=== PATIENT | male | born 1985 | race Two or more races ===

== ENCOUNTER 2020-04-16 15:05 | Emergency (ER) | payer OTHER ==
[~2020-04-16] VITALS: Ht 177.8 cm; Wt 77.7 kg
[2020-04-16 15:17] VITALS: BP 130/76
[2020-04-16] MEDS ORDERED: CYCL-331 PO (15:32)
[2020-04-16] MEDS ORDERED: PRED50TA PO (15:32)
--- NOTE | 2020-04-16 15:33 | PHYS DOC ---
Past History Past Medical History: No Pertinent History Past Surgical History: No Surgical History Alcohol Use: None General Adult EDM: Chief Complaint: BACK PAIN OR INJURY HPI: HPI: 34-year-old male presents with right low back pain. 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 The pain intensified quickly and he had to stop running. He took some ibuprofen at home but it is still moderate in intensity. It is a dull ache. No history of chronic back problems. He denies numbness, tingling, altered sensation of the lower extremities. He denies any other injuries at this time. Review of Systems: Review of Systems: Constitutional: Denies fever or chills Eyes: Denies change in visual acuity HENT: Denies nasal congestion or sore throat Respiratory: Denies cough or shortness of breath Cardiovascular: Denies chest pain or edema GI: Denies abdominal pain, nausea, vomiting, bloody stools or diarrhea : Denies dysuria Musculoskeletal: Right-sided low back pain Integument: Denies rash Neurologic: Denies headache, focal weakness or sensory changes Endocrine: Denies polyuria or polydipsia Lymphatic: Denies swollen glands Psychiatric: Denies depression or anxiety Heart Score: Risk Factors: Risk Factors: DM, Current or recent (<one month) smoker, HTN, HLP, family history of CAD, obesity. Risk Scores: Score 0 - 3: 2.5% MACE over next 6 weeks - Discharge Home Score 4 - 6: 20.3% MACE over next 6 weeks - Admit for Clinical Observation Score 7 - 10: 72.7% MACE over next 6 weeks - Early Invasive Strategies Allergies: Allergies: Allergies Coded Allergies Type Severity Reaction Last Updated Verified No Known Drug Allergies 04/16/20 No Physical Exam: PE: Constitutional: Well developed, well nourished, no acute distress, non-toxic appearance. [] HENT: Normocephalic, atraumatic, bilateral external ears normal, oropharynx moist, no oral exudates, nose normal. [] Eyes: PERRLA, EOMI, conjunctiva normal, no discharge. [] Neck: Normal range of motion, no tenderness, supple, no stridor. [] Cardiovascular:Heart rate regular rhythm, no murmur [] Lungs & Thorax: Bilateral breath sounds clear to auscultation [] Abdomen: Bowel sounds normal, soft, no tenderness, no masses, no pulsatile masses. [] Skin: Warm, dry, no erythema, no rash. [] Back: No tenderness over the bony prominences. Mild tenderness of the lateral paraspinal lumbar muscles. [] Extremities: No tenderness, no cyanosis, no clubbing, ROM intact, no edema. [] Neurologic: Alert and oriented X 3, normal motor function, normal sensory function, no focal deficits noted. [] Psychologic: Affect normal, judgement normal, mood normal. [] Current Patient Data: Vital Signs: Vital Signs Date Time Temp Pulse Resp B/P (MAP) Pulse Ox O2 Delivery O2 Flow Rate FiO2 04/16/20 15:17 98.0 63 18 130/76 (94) 100 EKG: EKG: [] Radiology/Procedures: Radiology/Procedures: [] Course & Med Decision Making: Course & Med Decision Making Pertinent Labs and Imaging studies reviewed. (See chart for details) I believe the patient just strained a muscle. I will treat him with Flexeril and prednisone. He is stable for discharge at this time. [] Dragon Disclaimer: HangIt Disclaimer: This electronic medical record was generated, in whole or in part, using a voice recognition dictation system. Departure Departure: Impression: Primary Impression: Strain of lumbar paraspinal muscle Qualified Codes: S39.012A - Strain of muscle, fascia and tendon of lower back, initial encounter Disposition: HOME/RESIDENCE PRIOR TO ADM Condition: STABLE Referrals: PCP,NO (PCP) Patient Instructions: Low Back Strain with Rehab-SportsMed Scripts Prednisone (PREDNISONE) 50 Mg Tablet 1 TAB PO DAILY for low back strain for 3 Days, #3 TAB Prov: BREEZY HART DO 04/16/20 Cyclobenzaprine Hcl (CYCLOBENZAPRINE HCL) 10 Mg Tablet 1 TAB PO TID PRN for MUSCLE SPASMS, #30 TAB Prov: BREEZY HART DO 04/16/20 Justification of Admission: Justification of Admission: Justification of Admission Dx: N/A BREEZY HART DO Apr 16, 2020 15:33
== END 2020-04-16 15:42 | disposition home or self-care (01) ==
LOC: ER 15:05
DX: S39.012A Strain of muscle, fascia and tendon of lower back, initial encounter (principal); X50.9XXA Other and unspecified overexertion or strenuous movements or postures, initial encounter; Y93.01 Activity, walking, marching and hiking; Y92.480 Sidewalk as the place of occurrence of the external cause; Y99.8 Other external cause status
CPT/HCPCS: 99283

== ENCOUNTER 2020-09-02 11:27 | Emergency (ER) | payer OTHER ==
[~2020-09-02] VITALS: Ht 170.2 cm; Wt 80.3 kg
[~2020-09-02 11:27] MED LIST: CYCL-331 PO; PRED50TA PO
[2020-09-02 11:35] VITALS: BP 131/87
--- NOTE | 2020-09-02 11:48 | PHYS DOC ---
Past History Past Medical History: No Pertinent History Past Surgical History: No Surgical History Alcohol Use: None Adult General Chief Complaint Chief Complaint: LOWER BACK PAIN OR INJURY [facility] HPI Patient is a 34-year-old male presenting for lower back pain. Reports he first noticed dull lower back pain that is off midline and intermittently radiates down posterior legs with termination prior to knee was 3 days ago. There is no inciting event, trauma or concerning mechanism of injury. 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 States he has had no significant change in activity, has not done any aggressive weight lifting recently such as squatting or lifting with poor form. He was seen at our facility 5 months ago for similar symptoms that was musculoskeletal in nature and responded with supportive care and outpatient physical therapy. Patient attempted to call primary care physician and get scheduled for physical therapy but was unable to be seen before the weekend, he has outpatient MRI scheduled this upcoming week. Denies any fever, COVID-19 contact, abdominal pain, changes in bladder or bowel function, no bladder or bowel incontinence, no saddle anesthesia, no history of immunodeficiency or IV drug use Review of Systems Review of Systems Fourteen body systems of review of systems have been reviewed. See HPI for pertinent positives and negative responses, other mesa all other systems are negative, non-pertinent or non-contributory Allergies Allergies Allergies Coded Allergies Type Severity Reaction Last Updated Verified No Known Drug Allergies 04/16/20 No Physical Exam Physical Exam Constitutional: Well developed, well nourished, no acute distress, non-toxic appearance. HENT: Normocephalic, atraumatic, bilateral external ears normal, oropharynx moist, no oral exudates, nose normal. Eyes: PERRLA, EOMI, conjunctiva normal, no discharge. Neck: Normal range of motion, no tenderness, supple, no stridor. Cardiovascular: Heart rate regular, sinus rhythm, no murmurs rubs or gallops Lungs & Thorax: Bilateral breath sounds clear to auscultation Abdomen: Bowel sounds normal, soft, no tenderness, no masses, no pulsatile masses. Nonsurgical abdomen, no peritoneal signs Skin: Warm, dry, no erythema, no rash. Back: No midline tenderness, no CVA tenderness. Negative bilateral leg raise, negative Homans' sign, negative pelvic tilt sign, focal tenderness to palpation around bilateral paralumbar muscle bellies Extremities: No tenderness, no cyanosis, no clubbing, ROM intact, no edema. Neurologic: Alert and oriented X 3, negative Romberg sign, normal motor & sensory function, no focal deficits noted. Pulses and reflexes intact to bilateral lower extremities, no saddle anesthesia Psychologic: Affect normal, judgement normal, mood normal. EKG EKG [] Radiology/Procedures Radiology/Procedures [] Heart Score HEART Score for Chest Pain: HEART Score for Chest Pain Response (Comments) Value History Slighlty/Non-Suspicious 0 Age < 45 0 Risk Factors No Risk Factors 0 Total 0 Risk Factors: Risk Factors: DM, Current or recent (<one month) smoker, HTN, HLP, family history of CAD, obesity. Risk Scores: Risk Factors: DM, Current or recent (<one month) smoker, HTN, HLP, family history of CAD, obesity. Course & Med Decision Making Course & Med Decision Making ABCs, history and physical examination non-concerning. There are no red flag signs of back pain present. I have low suspicion for malignancy/mets, acute Spinal Fracture, Vertebral Osteomyelitis, Epidural Abscess, Infected or Obstructing Kidney Stone. Their presentation appears most likely to be secondary to non-emergent musculoskeletal etiology vs non-emergent disc herniation. ED Workup: Defer imaging and labwork for outpatient follow up at this time. Disposition: Discharge. Strict return precautions discussed with patient with full understanding. Patient has scheduled outpatient MRI and PT evaluation this upcoming week. Patient to be discharged with prescriptions for Flexeril, ibuprofen and short-term steroids Dragon Disclaimer Dragon Disclaimer This electronic medical record was generated, in whole or in part, using a voice recognition dictation system. Departure Departure: Impression: Primary Impression: Lower back pain Disposition: 01 DC HOME SELF CARE/HOMELESS Condition: GOOD Referrals: PCP,UNKNOWN (PCP) Patient Instructions: Back Exercises, Generic, SportsMed Additional Instructions: You were evaluated in the Emergency Department today for back pain. Your evaluation suggests no acute abnormalities which require further intervention at this time. Your pain is most likely due to to a musculoskeletal cause that should improve with supportive care. - Move around as tolerated but avoiding heavy lifting. ``Bed rest is not recommended nor is it the best treatment for low back pain. - Medications will help control your discomfort: - -Ibuprofen (600-800 mg every 8 hours for pain) with food. - -Tylenol - Do not drink alcohol, drive a car, operate machinery, or get up on ladders or heights when taking any prescribed pain medications. - Do not drive home if you received prescribed pain medications here in the ED. Return to the ED immediately if you develop any of the following problems: - Leaking urine or difficulty urinating; - Inability to control your bowels; - New numbness or weakness in your legs or numbness between your legs; - Inability to walk - Fever Scripts Cyclobenzaprine Hcl (CYCLOBENZAPRINE HCL) 10 Mg Tablet 1 TAB PO QHS for PAIN, #7 TAB Prov: GREER CHILEL DO 09/02/20 Prednisone (PREDNISONE) 50 Mg Tablet 1 TAB PO DAILY for PAIN, #3 TAB Prov: GREER CHILEL DO 09/02/20 Ibuprofen (IBUPROFEN) 800 Mg Tablet 1 TAB PO TID for PAIN, #30 TAB 1 Refill Prov: GREER CHILEL DO 09/02/20 GREER CHILEL DO Sep 02, 2020 11:48
[2020-09-02] MEDS ORDERED: PRED50TA PO (11:57)
[2020-09-02] MEDS ORDERED: CYCL-331 PO (11:57)
[2020-09-02] MEDS ORDERED: IBUP800T19 PO (11:57)
[2020-09-02] MEDS ORDERED: CYCLOBENZAPRINE 10 MG TABLET. PO ONE (12:00)
[2020-09-02] MEDS ORDERED: IBUPROFEN 600 MG TABLET. PO ONE (12:00)
[2020-09-02] MEDS ORDERED: predniSONE 10 MG TABLET PO ONE (12:00)
== END 2020-09-02 12:10 | disposition home or self-care (01) ==
LOC: ER 11:27
DX: M54.5 Low back pain (principal)
CPT/HCPCS: 99284; J7512